=== PATIENT | male | born 1950 | race Caucasian/White ===

== ENCOUNTER → 2016-09-22 | Outpatient (CLI) | payer OTHER | LOC: BMCIMAGING 10:11 | PROVIDERS: ATTEND Family Medicine | DX: K40.90 Unilateral inguinal hernia, without obstruction or gangrene, not specified as recurrent (principal) ==

== ENCOUNTER 2016-10-12 09:31 | Day surgery (SDC) | payer OTHER ==
[~2016-10-12 09:31] MED LIST: BUPIVACAINE 0.5% 30 ML SDV ONE; ceFAZolin 2 GM/DEXTROSE 100 ML IV ONE
[2016-10-12] MEDS ORDERED: LIDOCAINE 1% 2 ML INJ ONE (09:52)
[2016-10-12] MEDS ORDERED: CEFAZOLIN 1 GM/DEXTROSE/50 ML BAG IV ONE ×2 (09:52→10:19)
[2016-10-12] MEDS ORDERED: fentaNYL 100 MCG/2 ML INJ ONE (10:38)
[2016-10-12] MEDS ORDERED: MIDAZOLAM 2 MG/2 ML VIAL ONE (10:51)
[2016-10-12] MEDS ORDERED: PROPOFOL 200 MG/20 ML VIAL ONE (10:55)
[2016-10-12] MEDS ORDERED: LIDOCAINE 1% 30 ML SDV ONE (11:15)
--- NOTE | 2016-10-12 12:47 | GOP ---
[f rep st] OPERATIVE REPORT DATE OF OPERATION: 10/12/2016 SURGEON: Jayce Kolb MD ANESTHESIA: Monitored anesthesia care per Ronen Rojas MD PREOPERATIVE DIAGNOSIS: Right inguinal hernia. POSTOPERATIVE DIAGNOSIS: Right inguinal hernia. PROCEDURE PERFORMED: Right inguinal hernia repair. FINDINGS: Patient had a small direct hernia and a lipoma of the cord. ESTIMATED BLOOD LOSS: 20 cc. INDICATIONS: This is a 65-year-old male with a history of right groin bulge. Risks and benefits of the procedure were discussed with the patient, questions were answered, and he wished to proceed. DESCRIPTION OF PROCEDURE: The patient was placed in the supine position. After the induction of ad equate IV sedation, the patient was prepped and draped in the standard surgical fashion. Marcaine 0 .5% was injected throughout the right groin for local anesthesia. An oblique incision was made and c arried to the subcutaneous tissue using cautery. The external oblique was incised in the direction of its fibers. The cord was then surrounded at the pubic tubercle. The cord structures were then ca refully dissected, preserving the vas and vessels. The hernia was then dissected down to preperiton eal fat and reduced. A plug was fashioned from [employer] and secured using 2-0 Vicryl interrupted. An onlay patch was created and affixed using 2-0 Prolene. Enough room was seen for the cord and an in strument tip. Good hemostasis was noted. The external oblique and Dylan's were approximated using 3-0 Vicryl in a running fashion. Skin was closed with 5-0 Biosyn subcuticular. The wound was steri herman dressed, the patient was taken to the post-anesthesia care unit in stable condition. COMPLICATIONS: None. DRAINS: None. /[id number]/MODL
== END 2016-10-12 14:00 | disposition home health service (06) ==
LOC: FSGY 09:31
PROVIDERS: ATTEND Surgery
DX: K40.90 Unilateral inguinal hernia, without obstruction or gangrene, not specified as recurrent (principal); D17.6 Benign lipomatous neoplasm of spermatic cord; J45.909 Unspecified asthma, uncomplicated; I48.0 Paroxysmal atrial fibrillation; E03.9 Hypothyroidism, unspecified
CPT/HCPCS: C1781; J0690; J2250; J2704; J3010

== ENCOUNTER → 2017-04-11 | Outpatient (CLI) | payer OTHER | LOC: BMCIMAGING 15:53 | PROVIDERS: ATTEND Nurse Practitioner Adult Health | DX: R06.02 Shortness of breath (principal) ==